=== PATIENT | male | born 1995 | race Two or more races ===

== ENCOUNTER 2019-02-25 10:04 | Emergency (ER) | payer OTHER ==
[~2019-02-25] VITALS: Ht 165.1 cm; Wt 68.0 kg
--- NOTE | 2019-02-25 10:21 | NUR ---
PT. VERBALIZED UNDERSTANDING OF AFTERCARE INSTRUCTIONS.Patient discharged custody of [employer] in stable condition. Written and verbal after care instructions given. Patient verbalizes understanding of instruction.
[2019-02-25 10:23] VITALS: BP 150/80
== END 2019-02-25 10:23 ==
LOC: ER 10:04
DX: S00.81XA Abrasion of other part of head, initial encounter (principal); Y08.89XA Assault by other specified means, initial encounter; Y93.89 Activity, other specified; Y92.89 Other specified places as the place of occurrence of the external cause; Y99.8 Other external cause status